=== PATIENT | male | born 1960 | race Caucasian/White ===

== ENCOUNTER 2017-06-15 17:17 | Emergency (ER) | payer OTHER ==
[2017-06-15 17:34] VITALS: RESP 16; TEMP 97.9
[2017-06-15] MEDS ORDERED: LORazepam 1 MG TAB PO ONE (17:58)
--- NOTE | 2017-06-15 18:33 | EDPHY ---
HPI/HX/ROS/PE/MDM Narrative: CHIEF COMPLAINT: Right hand laceration HPI: The patient is a 56-year-old male with history of chronic neuropathy who complains of accidentally cutting his right palm with a kitchen knife just prior to arrival. The patient was holding a knife, tripped over something which caused him to cut himself. He denies any new numbness or weakness. He was able to control bleeding with pressure and holding his hand up in the air. REVIEW OF SYSTEMS: Aside from elements discussed in the HPI, a comprehensive 10-point review of systems was reviewed and is negative. PMH: Chronic neuropathy. SOCIAL HISTORY: Works as an electrical maintenance worker. . PHYSICAL EXAM: General:Patient is alert, in no acute distress. Extremities: Left hand unaffected. Right hand: A large laceration measuring approximately 10 cm is present on the mid to distal right palm. The cut extends slightly distally along the radial aspect. The patient has 5/5 strength to flexion of all 5 digits. His light touch sensation is chronically impaired, but he describes no new sensation. No active bleeding. Neuro: Oriented x3. Normal motor function. Normal sensory function. ED Course: Procedure: Laceration repair. Verbal consent was obtained from the patient. The 10cm laceration on the [ location] was anesthetized in the usual fashion. The wound was irrigated, draped and explored to its base. [No] foreign material was identified. There were no deep structures involved. No tendon injury was identified. The laceration did extend to the level of the tendon sheath. The wound was repaired with 14 sutures of [4]-0 [prolene]. Good approximation was obtained. The procedure was performed by myself. MDM: This patient presents with a palm laceration. Likely, I see no evidence of tendon, nerve or vascular injury. The laceration did extend tendon sheath, so the patient was advised about the possibility of a partial tendon laceration although I did not see this on extensive wound evaluation including through full range of motion of the digits. Capillary refill is normal in all digits. The patient is appropriate for primary closure. I will give him a hand specialist for follow-up. - Data Points Medications Given: Discontinued Medications Lorazepam (Ativan) 1 mg PO EDNOW ONE Stop: 06/15/17 17:59 Last Admin: 06/15/17 18:03 Dose: 1 mg General Time Seen by Provider: 06/15/17 17:25 Initial Vital Signs: Initial Vital Signs Temperature (C) 36.6 C 06/15/17 17:22 Heart Rate 79 06/15/17 17:22 Respiratory Rate 16 06/15/17 17:22 Blood Pressure 127/80 H 06/15/17 17:22 O2 Sat (%) 97 06/15/17 17:22 O2 Delivery Mode Room Air Allergies/Adverse Reactions: No Known Allergies Allergy (Verified 06/15/17 17:28) Home Medications: Medication Instructions Recorded NK [No Known Home Meds] 03/01/16 Departure - Departure Disposition: Home, Routine, Self-Care Clinical Impression: Laceration Condition: Good Instructions: Laceration (ED) Additional Instructions: Sutures out in 10-14 days. Return to the Emergency Department for fever, redness, discharge from wound, increasing pain or other worsening of condition. Referrals: Nadine Can MD [Primary Care Provider] - As per Instructions Karey Grubbs MD [Medical Doctor] - As per Instructions
[2017-06-15 19:01] VITALS: BP 115/76; PULSE 71; O2SAT 95
== END 2017-06-15 18:45 | disposition home or self-care (01) ==
LOC: CED 17:17
PROC: 0HQFXZZ Repair Right Hand Skin, External Approach (ICD-10-PCS; principal; 2017-06-15)
DX: S61.411A Laceration without foreign body of right hand, initial encounter (principal); W26.0XXA Contact with knife, initial encounter

== ENCOUNTER 2017-09-12 15:53 | Emergency (ER) | payer OTHER ==
[2017-09-12] MEDS ORDERED: PHENYLEPHRINE 0.25% NASAL 15 ML SPRAY ONE (15:57)
[2017-09-12] MEDS ORDERED: LIDOCAINE HCL 4% TOPICAL SOLN 50ML ONE (15:57)
[2017-09-12] MEDS ORDERED: SILVER NITRATE APPLICATOR 1 APPL TP ONE (15:57)
[2017-09-12] MEDS ORDERED: OXYMETAZOLINE 30 ML NASAL SPRAY ONE (16:11)
[2017-09-12 17:07] VITALS: RESP 16
--- NOTE | 2017-09-12 17:43 | EDPHY ---
H & P Smoking Status: Never smoked Time Seen by Provider: 09/12/17 15:55 HPI/ROS: CHIEF COMPLAINT: Epistaxis History by patient HISTORY OF PRESENT ILLNESS: 56-year-old male with a history of multiple nasal surgeries in the past and nose bleeds that were cauterized 8 years ago presents with intermittent nose bleeding for the past 3 days. He was initially able to control it with Afrin spray and pressure at home but this morning it continued to bleed. He was seen in urgent care where they put packing in his nares and referred him to the ED. He complains of bleeding from both nares as well as down the back of his throat. He thinks he may have hit his nose always some rocks but he is not sure about this. He denies any other complaints. REVIEW OF SYSTEMS: As in HPI, and all other systems reviewed and are negative (Margaux Davis) Physical Exam: General Appearance: Alert and no distress. Head: normocephalic, atraumatic, no sinus tenderness Eyes: Pupils equal and round no injection. Nose: Blood from bilateral nares OP: mucus membranes moist, no tonsillar enlargement, no exudates, no blood clots Musculoskeletal: Neck is supple and nontender. Extremities have full range of motion and are nontender. Skin: No rashes or lesions. (Margaux Davis) Constitutional: Initial Vital Signs Temperature (C) 36.6 C 09/12/17 16:22 Heart Rate 77 09/12/17 16:22 Respiratory Rate 16 09/12/17 16:22 Blood Pressure 112/80 09/12/17 16:22 O2 Sat (%) 98 09/12/17 16:22 O2 Delivery Mode Room Air Allergies/Adverse Reactions: No Known Allergies Allergy (Verified 09/12/17 16:21) Home Medications: Medication Instructions Recorded Amoxicillin/Clavulanate Pot 875 mg PO BID #14 tab 09/12/17 [Augmentin 875 MG TAB (*)] Amoxicillin/Clavulanate Pot 875 mg PO BID 7 Days tab 09/12/17 [Augmentin 875 mg tab] LORAZEPAM 09/12/17 MDM/Departure - MDM Procedures: Procedure: Epistaxis control. After verbal consent was obtained, the patient was anesthetized with 4% lidocaine mixed with Kei-Synephrine. Patient was given multiple doses of Afrin nasal spray. The anterior epistaxis was identified. The patient was treated with direct cautery on-call some blocks plexus on the right. Following the procedure the patient was re-examined and the bleeding was well controlled temporarily. The patient tolerated the procedure well. The procedure was performed by myself. On re-evaluation the patient continued to have ongoing bleeding. I cannot visualize the source of the bleeding as it was beyond the nasal speculum though I could see ongoing accumulation of blood. Therefore, an Epistat nasal catheter was placed. Initially the patient could only tolerate 5 cc inflation in the posterior balloon and 6 cc inflation in the anterior balloon. At after this the patient bleeding was controlled. On re-evaluation I was able to put an additional 5 cc to fully inflate the posterior white catheter to 10 cc. An additional 14 cc was placed in the anterior balloon to bring it up to 20 cc. After this the patient's bleeding stopped. Patient did complain a little bit of more bleeding coming from the left near ease. This was re-examined and no active bleeding was seen. I was able to suction out some mucus and the patient coughed up some mucus but no more bleeding. He was observed for another 15 minutes without any bleeding. (Margaux Davis) ED Course/Re-evaluation: Patient presents with ongoing epistaxis after being seen in urgent care. Patient was initially cauterized but then had recurrent bleeding an Epistat catheter was placed. I discussed the case with ENT Dr. Castañeda who felt that if the Epistat catheter was controlling the bleeding there was no need for him to see him today. She will see the patient in follow-up in her office on Thursday. This was explained to the patient and his . He will keep the catheter in until Thursday. We discussed return precautions. He is discharged home on Augmentin. He will follow up with Dr. Castañeda on Thursday and return to the ER sooner if bleeding recurs. Just prior to discharge patient began bleeding again. The anterior balloon was further inflated to nearly 30 cc. We observed him again but the patient continued to ooze around the epistat catheter. I therefore spoke with Dr. Castañeda again who will see the patient at [facility] ED. I discussed the case with Dr. Benoit, emergency physician at [facility] who accepts the patient in transfer. (Margaux Davis) I took over care of this patient when he arrived in our emergency department. I evaluated the patient. He has a right nasal cavity Epistat double balloon placed. He appears uncomfortable with this in place he has some tearing from his right eye. He does not have any significant hemorrhage at this time. Dr. Castañeda was paged at 7:20 p.m.. She will come to the emergency department to evaluate the patient. I discussed with the patient taking the balloon down. He has had several surgical procedures on his nose and turbinates in the past. He has had bleeding complications from this. He is requesting to see ENT. 7:50 p.m., Dr. Castañeda is currently at the bedside. 8:30 p.m., Dr. Castañeda is left the Epistat pack in place. The patient does not have any active hemorrhage at this time. She placed some Surgicel. Patient will be discharged home with a prescription for Augmentin. He will follow up with Dr. Castañeda on Thursday at 11:45 a.m. for re-evaluation and removal of packing. (Jaswinder Benoit) - Depart Disposition: Home, Routine, Self-Care Clinical Impression: Acute anterior epistaxis Condition: Good Instructions: Nosebleed (ED) Additional Instructions: You were seen by Dr. Margaux Davis today. Please keep the nasal tampon in place. We inflated the white balloon fully to 10 cc. We inflated the yellow balloon with 15 cc. Please return if you have ongoing or persistent bleeding. Otherwise follow up with Dr. Castañeda, ENT specialist on Thursday at 11:45 a.m. at her office. Please call [phone] to make an appointment. Take antibiotics as prescribed. Take probiotics in between doses of antibiotics. Return for any worsening or new concerns. Prescriptions: Amoxicillin/Clavulanate Pot [Augmentin 875 MG TAB (*)] 875 mg PO BID #14 tab Amoxicillin/Clavulanate Pot [Augmentin 875 mg tab] 875 mg PO BID 7 Days tab Referrals: Jane Castañeda MD [Medical Doctor] - As per Instructions
[2017-09-12 19:22] VITALS: BP 138/89; PULSE 66; TEMP 97.5; O2SAT 98
--- NOTE | 2017-09-12 21:34 | GCON ---
[f rep st] CONSULTATION DATE OF CONSULTATION: 09/12/2017 CHIEF COMPLAINT: Epistaxis. HISTORY OF PRESENT ILLNESS: This is a pleasant 56-year-old man who states that about 3 days ago he t hinks he hit himself in the nose while he was gardening. He has some peripheral neuropathies and sta crystal that he cannot always feel what he is doing. He did have a little bit of nosebleed at that time, but this stopped with Afrin. He then began having some epistaxis from the right side this afternoon and that led him to go to the urgent care as it would not stop. It sounds like they packed him with 2 small cotton tampons. He states that he went home after it stopped, but then the bleeding started again and was gushing for about 10 minutes and so he then went to the ER in [place]. At this poin t, the pack was removed, which the ER physician stated was not a true pack but was about a 1 to 2 cm sponge. He continued to have bleeding and so she placed an anterior-posterior Rhino Rocket. This wa s done apparently after cauterizing some of the septum on the right side. The posterior aspect of th e Rhino Rocket as well as the anterior aspect of the Rhino Rocket was inflated and he stopped bleedin g temporarily, but then apparently started to ooze again, and so he was transferred over to the ER at [facility], where I was called for evaluation. Upon evaluation, he does not have any active bleeding from the front. He does have a right anterior-posterior pack in the right naris. He is complaining of so me pressure in the back part of his throat as well as pain. He denies any blood disorders, bleeding issues or any blood thinners that he is on. He does state that he takes a lot of fish oil. As noted above, he has some peripheral neuropathy of his hands and feet. Also significant is he had a septop lasty and a turbinate trim done about 20 years ago. He states he had a revision done about 12 years ago, and he states that ever since he has always had a narrow right nostril more so than the left. T his never really improved after either surgery. He also states that after his latter surgery, it adan nged the shape of his nose, and he now has more of a ski slope tip when it previously was very strong and broad. He has not been to see an ENT in multiple years. He does use saline rinses frequently. He complains of nasal obstruction on the right typically. PAST MEDICAL HISTORY: Significant for above. PAST SURGICAL HISTORY: Significant for above. REVIEW OF SYSTEMS: Positive for the above as well as a slightly dry throat that he complains of. PHYSICAL EXAMINATION: GENERAL: He is awake, alert, in no apparent distress. NEUROLOGIC: Cranial n erves 2 through 12 are grossly intact. VITAL SIGNS: Stable, but he is hypertensive at 150s over 97. HEENT: On evaluation of the nose, he has no overt active bleeding anteriorly. The left side is cl ear. Oropharyngeal exam shows tongue is mobile and midline. Palate elevates symmetrically. Tonsils are 2+. He has no blood in the posterior oropharynx. ASSESSMENT/PLAN: After discussion with the patient, he is very worried about bleeding going home. Thalia bhatt also is worried about a posterior bleed secondary to some of the ER consultation. I explained to thalia smiley that a posterior nosebleed is significantly rare and is usually very severe. He is very uncomfort able and I actually discussed with him that if he has a posterior pack technically he needs to be adm itted secondary to the fact that this could decrease his airway in some ways and potentially have ris ks related to this. He does not really want to be admitted but he is also worried about going home. I explained to him that I think we could try to deflate the posterior pack at this point, as the pac k is not going to get removed and this can tell us if it is a posterior nosebleed or not, so at this point I did remove about 7 cc of what looked like sterile water into a 10 cc syringe. Nothing else w as able to be aspirated anteriorly or posteriorly. His oropharynx was clear throughout and there was no active bleeding. I discussed with him that he is able to go home without the posterior pack infl ated. He does state that he is able to breathe quite a bit better with that posterior pack deflated. I placed a little bit of Surgicel around the edges of the anterior pack along the septum and the la teral nasal wall. I also sutured the 2 tips of the balloons together to prevent lateral pressure kimberly ng the lateral naris. This seemed to make him more comfortable. Again, he had no active bleeding af ter this was all done. In total, I was there for about 45 minutes and he had no bleeding. I did dis cuss with him about precautions such as no straining, lifting, nose blowing, and to sneeze with his m outh open. He should use some saline mist in the left naris. He is going to go home on Augmentin __ and we will see him in my clinic on Thursday at 11:45 for the pack removal and evaluation. If he has any further problems, he is welcome to call. If you have any questions, please do not hesi pickard to call. /[id number]/MODL
== END 2017-09-12 20:15 | disposition home or self-care (01) ==
PROC: 095KXZZ Destruction of Nasal Mucosa and Soft Tissue, External Approach (ICD-10-PCS; principal; 2017-09-12)
DX: R04.0 Epistaxis (principal)